=== PATIENT | female | born 1965 | race Caucasian/White ===

== ENCOUNTER 2024-10-16 10:51 | Inpatient (IN) | payer SELFPAY ==
[~2024-10-16] VITALS: Ht 165.1 cm; Wt 90.0 kg
[2024-10-16 12:08] LABS: CHLORIDE 105 mEq/L (98-107); POTASSIUM 3.9 mEq/L (3.5-5.1); SODIUM 139 mEq/L (136-145)
[2024-10-16 12:09] LABS: BASOPHILS % 0.5 % (0.0-2.0); CALCIUM 9.1 mg/dL (8.7-10.4); CARBON DIOXIDE 28 mEq/L (21-32); EOSINOPHILS % 2.1 % (0.0-5.0); HEMATOCRIT. 39.9 % (36.0-48.0); HEMOGLOBIN. 13.4 g/dL (12.0-16.0); LYMPHOCYTES % 38.7 % (20.0-50.0); MEAN CORPUSCULAR HGB CONC 33.6 g/dL (31.0-37.0); MEAN CORPUSCULAR VOLUME 89.1 fL (81.0-99.0); MEAN PLATELET VOLUME 8.6 fl (7.4-10.4); MONOCYTES % 6.7 % (2.0-8.0); PLATELET 222 x1000/uL (130-400); RED BLOOD CELL COUNT 4.47 mill/uL (4.2-5.4); RED CELL DISTRIBUTION WIDTH 12.9 % (11.6-14.6); WHITE BLOOD COUNT 8.4 x1000/uL (4.5-11.0)
[2024-10-16 12:12] LABS: INR 0.9; PROTHROMBIN TIME 10.2 sec (9.6-11.0)
[2024-10-16 12:14] LABS: CREATININE 0.8 mg/dL (0.6-1.0); ETHANOL BLOOD < 10 mg/dL (<10); GLUCOSE 94 mg/dL (70-105); TROPONIN I HIGH SENSITIVITY 10 ng/L (3.0-34); UREA NITROGEN BLOOD 7 mg/dL (9-23)
[2024-10-16] MEDS: DIPHENHYDRAMINE 50MG/ML VIAL IV STA (12:59)
[2024-10-16] MEDS ORDERED: IOHEXOL-350 100 ML BOTTLE ONE (13:00)
[2024-10-16] MEDS: SODIUM CHLORIDE 0.9% 1,000 ML IV ONE (13:01)
[2024-10-16] MEDS: METOCLOPRAMIDE HCL 10MG/2ML VIAL IV ONE (13:02)
[2024-10-16] MEDS: KETOROLAC 15MG/ML VIAL IM ONE (13:04)
[2024-10-16] MEDS: ACETAMINOPHEN 325MG TABLET PO ONE (13:05)
[2024-10-16 14:13] LABS: CLARITY URINE CLEAR (CLEAR); COLOR URINE YELLOW (YELLOW); GLUCOSE URINE NEGATIVE (NEGATIVE); KETONES URINE NEGATIVE (NEGATIVE); LEUKOCYTE ESTERASE URINE TRACE (NEGATIVE); NITRITE URINE NEGATIVE (NEGATIVE); OCCULT BLOOD URINE NEGATIVE (NEGATIVE); PROTEIN URINE NEGATIVE (NEGATIVE); SPECIFIC GRAVITY URINE 1.024 (1.005-1.030); UROBILINOGEN URINE 0.2 E.U./dL (0.2-1.0)
[2024-10-16 14:22] LABS: TROPONIN I HIGH SENSITIVITY 11 ng/L (3.0-34)
[2024-10-16 14:28] LABS: BACTERIA URINE TRACE; RBC URINE 0-2 /hpf (0-2); SQUAMOUS EPITHELIAL CELL URINE 2+ /lpf (RARE/1+); WBC URINE 0-2 /hpf (0-2); YEAST URINE NONE SEEN
[2024-10-16 14:33] LABS: *AMPHETAMINES SCREEN URINE NEGATIVE (NEGATIVE); *BARBITURATES SCREEN URINE NEGATIVE (NEGATIVE); *BENZODIAZEPINES SCREEN URINE NEGATIVE (NEGATIVE); *COCAINE SCREEN URINE NEGATIVE (NEGATIVE); METHADONE URINE SCREEN NEGATIVE (NEGATIVE)
[2024-10-16 14:34] LABS: CANNABINOID URINE SCREEN NEGATIVE (NEGATIVE); ECSTASY MDMA SCREEN URINE NEGATIVE (NEGATIVE); OPIATES URINE SCREEN NEGATIVE (NEGATIVE); PHENCYCLIDINE URINE SCREEN NEGATIVE (NEGATIVE)
[2024-10-16] MEDS ORDERED: IPRATROPIUM/ALBUTEROL 0.5-3(2.5)MG/3ML NEB HHN PRN (15:45)
[2024-10-16] MEDS ORDERED: DOCUSATE SODIUM 100MG CAPSULE PO PRN (15:45)
[2024-10-16] MEDS ORDERED: LORAZEPAM 0.5MG TABLET PO PRN (15:45)
[2024-10-16] MEDS ORDERED: MECLIZINE 25MG TABLET PO PRN (15:45)
[2024-10-16] MEDS ORDERED: CLONIDINE 0.1MG TABLET PO PRN (15:45)
[2024-10-16] MEDS ORDERED: GUAIFENESIN 200MG/10ML SUGAR FREE UDC PO PRN (15:45)
[2024-10-16] MEDS ORDERED: DEXTROSE 50% WATER 50ML SYRINGE IV PRN (15:45)
[2024-10-16] MEDS ORDERED: ONDANSETRON HCL 4MG/2ML INJ IV PRN (15:45)
[2024-10-16] MEDS ORDERED: ACETAMINOPHEN 325MG TABLET PO PRN (15:45)
[2024-10-16 16:00] VITALS: BP_SYST 113; BP_SYST 96; BP_DIAS 62; BP_DIAS 68; PULSE 68; PULSE 69; RESP 16; RESP 18; TEMP 36.4; TEMP 36.8; O2SAT 97
[2024-10-16] MEDS: MECLIZINE 25MG TABLET PO NR (16:37)
[2024-10-16 16:44] LABS: T4 FREE 1.19 ng/dL (0.89-1.76); THYROID STIMULATING HORMONE 2.93 uIU/mL (0.55-4.78)
[2024-10-16] MEDS: BLOOD SUGAR DIAGNOSTIC STRIP TEST SCH (17:00)
[2024-10-16] MEDS: INSULIN LISPRO 100 UNITS/ML SUBCUT SCH (17:32)
[2024-10-16 20:00] VITALS: BP 109/64; PULSE 68; RESP 16; TEMP 36.4; O2SAT 100
[2024-10-16] MEDS: ENOXAPARIN 30MG/0.3ML SYR SUBCUT SCH (21:16)
[2024-10-16] MEDS: ATORVASTATIN CALCIUM 40MG TABLET PO SCH (21:16)
[2024-10-16] MEDS: FAMOTIDINE 20MG TABLET PO SCH (21:16)
[2024-10-17] VITALS (7 sets, daily range): BP systolic 96–118; BP diastolic 56–64; PULSE 67–74; RESP 15–20; TEMP 36.2–36.5; O2SAT 95–100
[2024-10-17 07:53] LABS: BASOPHILS % 0.3 % (0.0-2.0); EOSINOPHILS % 2.4 % (0.0-5.0); HEMATOCRIT. 38.6 % (36.0-48.0); HEMOGLOBIN. 12.9 g/dL (12.0-16.0); LYMPHOCYTES % 41.3 % (20.0-50.0); MEAN CORPUSCULAR HEMOGLOBIN 29.7 pg (28.0-32.0); MEAN CORPUSCULAR HGB CONC 33.4 g/dL (31.0-37.0); MEAN CORPUSCULAR VOLUME 88.9 fL (81.0-99.0); MEAN PLATELET VOLUME 8.5 fl (7.4-10.4); MONOCYTES % 6.5 % (2.0-8.0); NEUTROPHILS % 49.5 % (40.0-76.0); PLATELET 192 x1000/uL (130-400); RED BLOOD CELL COUNT 4.34 mill/uL (4.2-5.4); WHITE BLOOD COUNT 7.7 x1000/uL (4.5-11.0)
[2024-10-17 08:14] LABS: CHLORIDE 107 mEq/L (98-107); POTASSIUM 3.9 mEq/L (3.5-5.1); SODIUM 141 mEq/L (136-145)
[2024-10-17 08:15] LABS: CALCIUM 8.7 mg/dL (8.7-10.4); CARBON DIOXIDE 27 mEq/L (21-32)
[2024-10-17 08:20] LABS: CREATININE 0.8 mg/dL (0.6-1.0); GLUCOSE 87 mg/dL (70-105); UREA NITROGEN BLOOD 9 mg/dL (9-23)
[2024-10-17] MEDS: ASPIRIN 81MG TABLET PO SCH (08:34)
[2024-10-17] MEDS: ACETAMINOPHEN 325MG TABLET PO PRN (08:34)
[2024-10-18] VITALS: BP 102/49; PULSE 78; RESP 18; TEMP 36.2; O2SAT 97
[2024-10-18 04:00] VITALS: BP 107/56; PULSE 69; RESP 18; TEMP 36.4; O2SAT 96
[2024-10-18 08:00] VITALS: BP 121/65; PULSE 67; RESP 18; TEMP 36.4; O2SAT 98
[2024-10-18] MEDS: SODIUM CHLORIDE 0.45% 1,000 ML IV ONE ×2 (08:04→12:35)
[2024-10-18 10:22] LABS: VITAMIN B12 SERUM 3910.56 pg/mL (211-911)
[2024-10-18] MEDS ORDERED: ONDA4TAB50 MT (11:33)
[2024-10-18] MEDS ORDERED: MECL-299 MT (11:33)
[2024-10-18 12:00] VITALS: BP 120/66; PULSE 68; RESP 18; TEMP 36.5; O2SAT 98
[2024-10-18 13:49] VITALS: BP 120/66; PULSE 68; TEMP 97.7; O2SAT 98
== END 2024-10-18 15:22 | disposition home or self-care (01) | DRG 111 ==
LOC: ER 10:51 → 8WST 13:45 → EDBEDREQ 13:57 → EDBEDREQTM 13:57
PROVIDERS: ADMIT Internal Medicine; ATTEND Internal Medicine
DX: H81.10 Benign paroxysmal vertigo, unspecified ear (principal); E78.5 Hyperlipidemia, unspecified; I10 Essential (primary) hypertension; J45.909 Unspecified asthma, uncomplicated; L92.8 Other granulomatous disorders of the skin and subcutaneous tissue; F17.210 Nicotine dependence, cigarettes, uncomplicated; H55.00 Unspecified nystagmus; H93.13 Tinnitus, bilateral; Z98.51 Tubal ligation status
CPT/HCPCS: 36415; 70496; 70498; 70551; 71045; 80048; 80061; 80305; 80320; 81003; 82607; 82962; 83036; 84439; 84443; 84484; 85025; 86592; 93005; 93970; 97112; 97162; 97164; 97165; 99291; J1200; J1650; J1885; J2765; J7030; J8597; Q9967; G0480